=== PATIENT | male | born 1960 | race Two or more races ===

== ENCOUNTER 2024-04-01 20:35 | Emergency (ER) | payer MEDICAID, OTHER ==
[~2024-04-01] VITALS: Ht 177.8 cm; Wt 79.7 kg
[2024-04-01] MEDS ORDERED: HYDR-4902 PO (23:08)
[2024-04-01] MEDS ORDERED: IBUP-1455 PO (23:08)
[2024-04-02 00:01] VITALS: BP 128/80; PULSE 60; RESP 20; TEMP 98.2; O2SAT 98
[2024-04-02] MEDS: HYDROcodone-ACET 5/325MG TAB PO ONE (00:20)
[2024-04-02] MEDS: KETOROLAC TROMETH 60MG/2ML VIAL IM ONE (00:20)
== END 2024-04-02 00:33 | disposition home or self-care (01) ==
LOC: ER 20:35
DX: S52.572A Other intraarticular fracture of lower end of left radius, initial encounter for closed fracture (principal); W18.09XA Striking against other object with subsequent fall, initial encounter; Y93.89 Activity, other specified; Y92.89 Other specified places as the place of occurrence of the external cause; Y99.8 Other external cause status
CPT/HCPCS: 29125; 73090; 73110; 96372; 99284; J1885